=== PATIENT | female | born 1930 | race Caucasian/White ===

== ENCOUNTER 2018-09-25 09:18 | Emergency (ER) | payer MEDICARE ==
--- NOTE | 2018-09-25 10:05 | ER Report ---
History and Physical Time Seen By MD: 09:24 Hx. of Stated Complaint: PATIENT REPORTS FALLING ON THE LEFT RIBS AND HIP. REPORTS NO LOC, NO NECK PAIN. PATIENT FELL LAST DECEMEBER AND HAD 3 BROKEN VERTABRAE HPI/ROS CHIEF COMPLAINT: Left rib left hip pain HISTORY OF PRESENT ILLNESS: 87-year-old female comes in with left rib and left hip pain status post fall last night at about 3:00 in the morning. Patient returned from a trip got up and visiting housekeeper the past with her walker tripped over a piece of luggage fell onto her left side no head or neck trauma no loss of consciousness patient's family was with her at at the time of the fall was immediately they're to elevate her back up mild complaint of some left rib discomfort but felt better went to sleep workup this morning is having worsening left rib pain of and the T form to T3 area just under the axillary region and also penicillin left hip and she is able to ambulate with some discomfort but is at her baseline. No neck pain no head pain no loss of consciousness no chest pain otherwise no shortness of breath no additional complaints noted was a mechanical fall REVIEW OF SYSTEMS: Respiratory: No cough, no dyspnea. Cardiovascular: No chest pain, no palpitations. Gastrointestinal: No vomiting, no abdominal pain. Musculoskeletal: Left rib left hip pain Remainder of the 14 system rev: Yes Allergies: Coded Allergies: No Known Drug Allergies (Unverified , 07/15/18) Home Meds Reported Medications Spironolactone (SPIRONOLACTONE) 25 Mg Tablet, 12.5 MG PO, TAB 07/15/18 Rivaroxaban 15 Mg (XARELTO 15 MG) 15 Mg Tablet, 15 MG PO DAILY, TAB 07/15/18 Potassium Chloride (POTASSIUM CHLORIDE) 10 Meq Capsule.er, 10 MEQ PO 07/15/18 Metoprolol Succinate (METOPROLOL SUCCINATE) 25 Mg Tab.er.24h, 1 TAB PO QDAY, TAB 07/15/18 Melatonin (MELATONIN) 3 Mg Tablet, 3 MG PO 07/15/18 Magnesium Hydroxide (MILK OF MAGNESIA) 400 Mg/5 Ml Oral.susp, 400 MG PO, BOTTLE 07/15/18 Magnesium Oxide (MAGNESIUM OXIDE) 400 Mg Tablet, 400 MG PO TID 07/15/18 Levothyroxine Sodium (LEVOTHYROXINE SODIUM) 75 Mcg Tablet, 75 MCG PO QDAY, TAB 07/15/18 Furosemide (FUROSEMIDE) 40 Mg Tablet, 1 TAB PO BID, TAB 07/15/18 Folic Acid (FOLIC ACID) 1 Mg Tablet, 1 MG PO QDAY, TAB 07/15/18 Flecainide Acetate (FLECAINIDE ACETATE) 50 Mg Tablet, 75 MG PO BID 07/15/18 Diphenhydramine Hcl (BENADRYL ALLERGY) 25 Mg Tablet, 25 MG PO Q6-8H, TAB 07/15/18 Digoxin (DIGOXIN) 125 Mcg Tablet, 125 MCG PO DAILY 07/15/18 Diclofenac Sodium 1% Gel (VOLTAREN 1% GEL) 100 Gm Gel..gram., 2 GM 07/15/18 Cyanocobalamin (Vitamin B-12) (B-12 Compliance) 1,000 Mcg/Ml Kit, 1000 MCG IM monthly 07/15/18 Cholecalciferol (Vitamin D3) (VITAMIN D) 1,000 Unit Capsule, 1000 UNIT PO, CAPSULE 07/15/18 Atorvastatin Calcium (LIPITOR) 10 Mg Tablet, 1 TAB PO QDAY, TAB 07/15/18 Aspirin (ASPIRIN) 81 Mg Tab.chew, 81 MG PO QDAY, TAB.CHEW 07/15/18 Reviewed Nurses Notes: Yes Old Medical Records Reviewed: Yes Constitutional Vital Sign - Last 24 Hours 09/25/18 09/25/18 09/25/18 09/25/18 09:26 09:27 09:38 10:18 Temp 98.2 Pulse 81 82 79 Resp 16 B/P (MAP) 117/76 117/76 (90) Pulse Ox 90 96 99 O2 Delivery Nasal Cannula 09/25/18 10:38 Pulse 71 Pulse Ox 100 Physical Exam General Appearance: [The patient is alert, has no immediate need for airway protection and no current signs of toxicity.] [ ] Eyes: Pupils equal and round no injection. Respiratory: Chest is non tender, lungs are clear to auscultation. Cardiac: regular rate and rhythm [ ] Gastrointestinal: Abdomen is soft and non tender, no masses, bowel sounds normal. Musculoskeletal: Palpation the left anterior lateral chest wall approximately T4 levels with some mild discomfort normal breath sounds bilaterally and tende rness to palpation of the left axial areas well pain has patient has no pain with range of motion of the left hip some mild tenderness to palpation otherwise acetabular area otherwise unremarkable neurovascularly intact Neck is supple and non tender. Extremities have full range of motion and are non tender. Skin: No rashes or lesions. [ ] DIFFERENTIAL DIAGNOSIS: After history and physical exam differential diagnosis was considered for rib fracture and fracture pelvis fracture Medical Decision Making ED Course/Re-evaluation ED Course ED clinical course 79-year-old female mechanical falls a single isolated left sided 6 rib nondisplaced fracture respiratory x-rays were negative diagnosis accordingly we'll discharge her primary care follow-up Decision to Disposition Date: Sep 25, 2018 Decision to Disposition Time: 11:03 Depart Departure Latest Vital Signs Vital Signs Date Time Temp Pulse Resp B/P (MAP) Pulse Ox O2 Delivery O2 Flow Rate FiO2 09/25/18 10:38 71 100 09/25/18 09:27 117/76 (90) 09/25/18 09:26 98.2 16 Nasal Cannula Impression: Primary Impression: Left rib fracture Condition: Improved Disposition: HOME OR SELF-CARE Referrals: PATSY FOFANA DNP, LEATHER TOOLER-BC 5 Days Patient Instructions: Rib Fracture (DC) FIDEL YAN MD Sep 25, 2018 10:05
--- NOTE | 2018-09-25 10:29 | RADIOLOGY IMAGING REPORT ---
FACILITY: [facility] - [place] PATIENT NAME: Loreto Garcia : 1930 MR: [id number] V: [id number] EXAM DATE: ORDERING PHYSICIAN: FIDEL YAN TECHNOLOGIST: Location[place] [facility] [place] Patient: Loreto Garcia : 1930 Visit/Account:[id number] Date of Sevice: 09/25/2018 Exam type: HIP LEFT History: fall Comparison: AP pelvis July 15, 2018. Findings: Chronic appearing fracture through the left-sided the pubis again seen. There is no evidence of acut e fracture dislocation involving the left hip. Surgical clips are identified left side the pelvis IMPRESSION: 1. Old appearing fracture through the left-sided pubis. No evidence of acute fracture or dislocation Report Dictated By: Brook Bonilla MD at 09/25/2018 10:21 AM Report E-Signed By: Brook Bonilla MD at 09/25/2018 10:23 AM WSN:[email or web address]
--- NOTE | 2018-09-25 10:39 | RADIOLOGY IMAGING REPORT ---
[place] [facility] [place] NAME: Loreto Garcia : 1930 MR: [id number] V: [id number] EXAM DATE: ORDERING PHYSICIAN: FIDEL YAN TECHNOLOGIST: Location: [facility] - [place] Patient: Loreto Garcia : 1930 Visit/Account:[id number] Date of Sevice: 09/25/2018 Exam type: CHEST PA LAT History: fall Comparison: July 15, 2018. Findings: Again notes hyperinflation throughout the lung castillo. There is no evidence of acute-appearing pulmo nary consolidation, pneumothorax or pneumomediastinum. The cardiac silhouette is mildly enlarged how ever unchanged. Two week cardiac pacemaker again noted. There are postsurgical changes from a left mastectomy. Surgical clips also identified in the upper abdomen. There is diffuse osteopenia the vi sualized bones and multiple compression fractures in the thoracic and visualized lumbar spine. These appear relatively stable when compared the prior study IMPRESSION: 1. Hyperinflation of the lung castillo although no evidence of acute pulmonary consolidation Multiple compression fractures in the thoracic and visualized lumbar spine although appears similar t o the prior study Report Dictated By: Brook Bonilla MD at 09/25/2018 10:23 AM Report E-Signed By: Brook Bonilla MD at 09/25/2018 10:35 AM WSN:[email or web address]
--- NOTE | 2018-09-25 10:45 | RADIOLOGY IMAGING REPORT ---
[place] [facility] [place] Loreto Garcia : 1930 MR: [id number] V: [id number] EXAM DATE: ORDERING PHYSICIAN: FIDEL YAN TECHNOLOGIST: Location: [facility] - [place] Patient: Loreto Garcia : 1930 Visit/Account:[id number] Date of Sevice: 09/25/2018 Exam type: RIBS LEFT History: fall Comparison: July 15, 2018. Findings: There is mild cortical irregularity along the anterior aspect of the left ninth and 10th ribs althoug h these appear to be old there is irregularity along the anterior aspect of the left sixth rib which may represent an acute nondisplaced fracture. There is no evidence of pneumothorax. IMPRESSION: 1. Cortical irregularity along the anterior aspect of the left sixth rib which may represent a nondi splaced acute fracture. Old appearing fractures through the anterior aspect the left ninth and 10th ribs Report Dictated By: Brook Bonilla MD at 09/25/2018 10:35 AM Report E-Signed By: Brook Bonilla MD at 09/25/2018 10:40 AM WSN:[email or web address]
[2018-09-25 11:06] VITALS: BP 119/71
== END 2018-09-25 11:20 | disposition home or self-care (01) ==
LOC: ER 09:44
DX: S22.32XA Fracture of one rib, left side, initial encounter for closed fracture (principal)
CPT/HCPCS: 71046; 71100; 93005; 99284

== ENCOUNTER 2018-09-25 20:30 | Observation (INO) | payer MEDICARE ==
[~2018-09-25] VITALS: Ht 175.3 cm; Wt 58.1 kg
--- NOTE | 2018-09-25 20:33 | ER Report ---
History and Physical Time Seen By MD: 20:33 HPI/ROS CHIEF COMPLAINT: Syncope while sitting HISTORY OF PRESENT ILLNESS: 87-year-old female brought in by her son with concerns over syncopal episode. Patient was seen here earlier in the ER today after a ground-level fall at 3 AM last night. She's complaining of left-sided rib pain. She has an isolated 6th rib fracture. She takes a role toe chronically. She did not strike her head last night. She's not complaining of a headache. She notes no chest pain, nausea or vomiting. She notes no shortness of breath. She denies abdominal pain, vomiting or diarrhea. Patient has a history of a burst fracture of T12 and wears a brace on her body. REVIEW OF SYSTEMS: Respiratory: No cough, no dyspnea. Cardiovascular: No chest pain, no palpitations. Gastrointestinal: No vomiting, no abdominal pain. Musculoskeletal: No back pain. Allergies: Coded Allergies: No Known Drug Allergies (Unverified , 09/25/18) Home Meds Reported Medications Spironolactone (SPIRONOLACTONE) 25 Mg Tablet, 12.5 MG PO, TAB 07/15/18 Rivaroxaban 15 Mg (XARELTO 15 MG) 15 Mg Tablet, 15 MG PO HS, TAB 07/15/18 Potassium Chloride (POTASSIUM CHLORIDE) 10 Meq Capsule.er, 10 MEQ PO 07/15/18 Metoprolol Succinate (METOPROLOL SUCCINATE) 25 Mg Tab.er.24h, 1 TAB PO QDAY, TAB 07/15/18 Melatonin (MELATONIN) 3 Mg Tablet, 3 MG PO 07/15/18 Magnesium Hydroxide (MILK OF MAGNESIA) 400 Mg/5 Ml Oral.susp, 400 MG PO, BOTTLE 07/15/18 Magnesium Oxide (MAGNESIUM OXIDE) 400 Mg Tablet, 400 MG PO TID 07/15/18 Levothyroxine Sodium (LEVOTHYROXINE SODIUM) 75 Mcg Tablet, 75 MCG PO QDAY, TAB 07/15/18 Furosemide (FUROSEMIDE) 40 Mg Tablet, 1 TAB PO BID, TAB 07/15/18 Folic Acid (FOLIC ACID) 1 Mg Tablet, 1 MG PO QDAY, TAB 07/15/18 Flecainide Acetate (FLECAINIDE ACETATE) 50 Mg Tablet, 75 MG PO BID 07/15/18 Diphenhydramine Hcl (BENADRYL ALLERGY) 25 Mg Tablet, 25 MG PO Q6-8H, TAB 07/15/18 Digoxin (DIGOXIN) 125 Mcg Tablet, 125 MCG PO HS 07/15/18 Diclofenac Sodium 1% Gel (VOLTAREN 1% GEL) 100 Gm Gel..gram., 2 GM 07/15/18 Cyanocobalamin (Vitamin B-12) (B-12 Compliance) 1,000 Mcg/Ml Kit, 1000 MCG IM monthly 07/15/18 Cholecalciferol (Vitamin D3) (VITAMIN D) 1,000 Unit Capsule, 1000 UNIT PO, CAPSULE 07/15/18 Atorvastatin Calcium (LIPITOR) 10 Mg Tablet, 1 TAB PO QDAY, TAB 07/15/18 Aspirin (ASPIRIN) 81 Mg Tab.chew, 81 MG PO QDAY, TAB.CHEW 07/15/18 Past Medical/Surgical History Past medical history: CVA 2009 on blood thinners, pacemaker, MS 2003 on daily aspirin, coronary stent 2004, hypoxia, O2 2 L at night, breast cancer status post left mastectomy, right-sided hip fracture 2. Depression, skin cancer. Past surgical history cataract removal, tonsillectomy, cardiac stent, left mastectomy, skin cancer removal Reviewed Nurses Notes: Yes Old Medical Records Reviewed: Yes Constitutional Vital Sign - Last 24 Hours 09/25/18 09/25/18 09/25/18 09/25/18 20:35 20:37 20:45 20:50 Temp 97.6 Pulse 70 70 70 Resp 14 B/P (MAP) 111/63 111/63 (79) 108/61 (77) Pulse Ox 94 94 94 O2 Delivery Room Air 09/25/18 09/25/18 09/25/18 09/25/18 20:56 21:15 21:20 21:30 Pulse 70 B/P (MAP) 110/64 (79) 116/70 (85) Pulse Ox 96 O2 Flow Rate 2.0 09/25/18 09/25/18 09/25/18 09/25/18 22:02 22:07 22:22 22:27 Pulse 69 70 72 B/P (MAP) 115/66 (82) Pulse Ox 98 100 99 09/25/18 09/25/18 09/25/18 09/25/18 22:57 23:12 23:27 23:32 Pulse 73 86 87 Pulse Ox 94 100 93 96 Physical Exam Vital signs stable, afebrile, pulse ox normal General Appearance: The patient is alert, has no immediate need for airway protection and no current signs of toxicity. Alert and oriented 3, good spirits, mentating well HEENT: Pupils equal and round no injection. TMs normal, oropharynx with dry mucous membranes Respiratory: Chest is non tender, lungs are clear to auscultation. Positive chest wall tenderness on the left side consistent with a rib fracture Cardiac: regular rate and rhythm, no murmur Gastrointestinal: Abdomen is soft and non tender, no masses, bowel sounds normal. Musculoskeletal: Neck: Neck is supple and non tender. No tenderness in the midline Extremities have full range of motion and are non tender. No edema Skin: No rashes or lesions. Neuro: Alert and oriented 3, cranial nerves II through XII intact motor 5/5 tandem mill sticker, sensory intact to light touch 4 DIFFERENTIAL DIAGNOSIS: After history and physical exam differential diagnosis was considered for syncope including but not limited to vasovagal syncope, arrhythmia, dehydration, and blood loss. Medical Decision Making Data Points Result Diagram: 09/27/1836 09/27/1836 Laboratory Hematology Test 09/25/18 20:50 09/25/18 22:00 Peripheral Blood Smear No Y/N Lactate 1.8 mmol/L (0.7-2.1) Digoxin Level 1.8 ng/ml Digoxin Last Dose Date unk Digoxin Last Dose Time unk Urine Color Yellow Urine Clarity Clear Urine pH 6.0 pH (4.8-9.5) Urine Specific [place] 1.012 Urine Protein Negative mg/dL (NEGATIVE) Urine Glucose (UA) Negative mg/dL (NEGATIVE) Urine Ketones Negative mg/dL (NEGATIVE) Urine Blood Negative (NEGATIVE) Urine Nitrite Negative (NEGATIVE) Urine Bilirubin Negative (NEGATIVE) Urine Urobilinogen Negative mg/dL (0.2-1.9) Urine Leukocyte Esterase Negative (NEGATIVE) Urine RBC 1 /HPF (0-2/HPF) Urine WBC <1 /HPF (0-5/HPF) Urine Squamous Epithelial Cells None /LPF (NONE-FEW) Urine Bacteria Negative /HPF (NONE-FEW) Urine Hyaline Casts Many /LPF (NONE-FEW) Urine Mucus None /HPF (NONE-FEW) Chemistry Test 09/25/18 20:50 09/25/18 22:00 Peripheral Blood Smear No Y/N Lactate 1.8 mmol/L (0.7-2.1) Digoxin Level 1.8 ng/ml Digoxin Last Dose Date unk Digoxin Last Dose Time unk Urine Color Yellow Urine Clarity Clear Urine pH 6.0 pH (4.8-9.5) Urine Specific [place] 1.012 Urine Protein Negative mg/dL (NEGATIVE) Urine Glucose (UA) Negative mg/dL (NEGATIVE) Urine Ketones Negative mg/dL (NEGATIVE) Urine Blood Negative (NEGATIVE) Urine Nitrite Negative (NEGATIVE) Urine Bilirubin Negative (NEGATIVE) Urine Urobilinogen Negative mg/dL (0.2-1.9) Urine Leukocyte Esterase Negative (NEGATIVE) Urine RBC 1 /HPF (0-2/HPF) Urine WBC <1 /HPF (0-5/HPF) Urine Squamous Epithelial Cells None /LPF (NONE-FEW) Urine Bacteria Negative /HPF (NONE-FEW) Urine Hyaline Casts Many /LPF (NONE-FEW) Urine Mucus None /HPF (NONE-FEW) Toxicology Test 09/25/18 20:50 Digoxin Level 1.8 ng/ml Digoxin Last Dose Date unk Digoxin Last Dose Time unk Urinalysis Test 09/25/18 22:00 Urine Color Yellow Urine Clarity Clear Urine pH 6.0 pH (4.8-9.5) Urine Specific [place] 1.012 Urine Protein Negative mg/dL (NEGATIVE) Urine Glucose (UA) Negative mg/dL (NEGATIVE) Urine Ketones Negative mg/dL (NEGATIVE) Urine Blood Negative (NEGATIVE) Urine Nitrite Negative (NEGATIVE) Urine Bilirubin Negative (NEGATIVE) Urine Urobilinogen Negative mg/dL (0.2-1.9) Urine Leukocyte Esterase Negative (NEGATIVE) Urine RBC 1 /HPF (0-2/HPF) Urine WBC <1 /HPF (0-5/HPF) Urine Squamous Epithelial Cells None /LPF (NONE-FEW) Urine Bacteria Negative /HPF (NONE-FEW) Urine Hyaline Casts Many /LPF (NONE-FEW) Urine Mucus None /HPF (NONE-FEW) EKG/Imaging EKG Interpretation 12 lead EK Rhythm: Electronic pacemaker at 70 bpm [place]: normal QRS: normal ST segments: normal, comparison to previous EKG dated 07/15/18, no significant change Imaging Results: CT scan of the head without contrast was obtained. The results of the study are no acute findings. The study was read by the radiologist. I viewed the images myself on the PACS system. ED Course/Re-evaluation Clinical Indication for ER IV: Hydration, IV Access ED Course Patient was admitted to an examination room. H&P was done. The differential diagnoses was considered. Patient with 2 potentially syncopal episodes. She was unresponsive for her son called 911 to have her brought in. She appears mildly dehydrated on diagnostic studies. The remainder of the workup is unremarkable. She does have a history of a pacemaker is on Arnaud denied. Patient's on several diuretics. Case was discussed with the son and patient is somewhat like her admitted. She does appear dehydrated. Case was discussed with Dr. Foss hospitalist on-call. Decision to Disposition Date: Sep 25, 2018 Decision to Disposition Time: 22:20 Depart Departure Latest Vital Signs Vital Signs Date Time Temp Pulse Resp B/P (MAP) Pulse Ox O2 Delivery O2 Flow Rate FiO2 09/25/18 23:32 96 09/25/18 23:27 87 09/25/18 22:02 115/66 (82) 09/25/18 20:56 2.0 09/25/18 20:35 97.6 14 Room Air Impression: Primary Impression: Syncope Additional Impressions: Dehydration Falling Left rib fracture Pacemaker Condition: Improved Disposition: Admitted from ER Problem Qualifiers Primary Impression: Syncope Syncope type: unspecified Qualified Codes: R55 - Syncope and collapse Additional Impressions: Left rib fracture Encounter type: initial encounter Rib fracture type: single rib Fracture type: closed Qualified Codes: S22.32XA - Fracture of one rib, left side, initial encounter for closed fracture PRIYA SARKAR DO Sep 25, 2018 20:33
[2018-09-25] MEDS ORDERED: NS(*) 0.9% 1000 ML BAG 1,000 ML IV ONE (20:38)
--- NOTE | 2018-09-25 20:54 | EKG ---
[place] [facility] [place]: KARLA EM : [id number] MR: [id number] V: [id number] EXAM DATE: ORDERING PHYSICIAN: PRIYA SARKAR TECHNOLOGIST: LANEY Frank Reason : SYNCOPE Blood Pressure : / mmHG Vent. Rate : 070 BPM Atrial Rate : 073 BPM P-R Int : 000 ms QRS Dur : 180 ms QT Int : 474 ms P-R-T Axes : 000 -77 104 degrees QTc Int : 511 ms Electronic ventricular pacemaker When compared with ECG of 15-JUL-2018 08:04, No significant change was found Confirmed by JOAQUIN TRAVIS ([id number]) on 09/25/2018 10:30:17 PM Referred By: Confirmed By:JOAQUIN TRAVIS
[2018-09-25 21:09] LABS: PLATELET COUNT, AUTOMATED 269 K/uL (150-450)
--- NOTE | 2018-09-25 21:28 | RADIOLOGY IMAGING REPORT ---
FACILITY: [facility] - [place] PATIENT NAME: Loreto Garcia : 1930 MR: [id number] V: [id number] EXAM DATE: ORDERING PHYSICIAN: PRIYA SARKAR TECHNOLOGIST: Location: [facility] Patient: Loreto Garcia : 1930 Visit/Account:[id number] Date of Sevice: 09/25/2018 EXAMINATION: CT HEAD WITHOUT CONTRAST COMPARISON: 07/15/2018 HISTORY: Episodes of fainting. Possibly hit head. On blood thinners. PROCEDURE: Noncontrast CT from the vertex through the skull base. One of the following dose optimizat ion techniques was utilized in the performance of this exam: Automated exposure control; adjustment o f the mA and/or kV according to the patient's size; or use of an iterative reconstruction technique. Specific details can be referenced in the facility's radiology CT exam operational policy. FINDINGS: Brain volume: Mild to moderate global atrophy as before. Hemorrhage/extra-axial fluid: None. Mass effect/midline shift/edema: None. Ischemia: Small region of encephalomalacia in the right frontal lobe is unchanged. Moderate chronic white matter changes before. No new region of ring-white differentiation loss. Ventricles and basal cisterns: Within normal limits. Posterior fossa: Negative. Vessels: Atherosclerosis. Calvarium, skull base, and scalp: Negative. Visualized sinuses and orbits: Within normal limits. IMPRESSION: 1. No intracranial hemorrhage or mass effect. 2. Atrophy, right frontal encephalomalacia, and chronic white matter disease. No CT findings of acu te ischemia. Report Dictated By: Kali Silva MD at 09/25/2018 9:18 PM Report E-Signed By: Kali Silva MD at 09/25/2018 9:23 PM WSN:[email or web address]
[2018-09-25] MEDS ORDERED: INFLUENZA VIRUS VAC 0.5ML SYR IM ONLY ONE (23:20)
[2018-09-25] MEDS ORDERED: FLECAINIDE ACETATE 75 MG PO SCH (23:25)
[2018-09-25] MEDS ORDERED: RIVAROXABAN 10 MG TAB PO SCH (23:25)
[2018-09-25] MEDS ORDERED: traMADol 50 MG TAB PO PRN (23:30)
[2018-09-25] MEDS ORDERED: ACETAMINOPHEN 500 MG TAB PO PRN (23:30)
[2018-09-25 23:50] VITALS: BP 120/74
--- NOTE | 2018-09-25 23:52 | History & Physical ---
History of Present Illness History of Present Illness 87yo female with a h/o a pacemaker placement, CHF and atrial fibrillation who was brought to the ER for episodes of passing out. She came to [place] yesterday from [facility] on a "red eye" flight. She did fairly well on the flight, but didn't sleep. At about 0300 this morning, she returned from going to the bathroom and missed the bed and fell to the floor. She denies any palpitations or syncope. She went to the ER at about 0930. She was found to have a left 6th rib fracture. She went back to her son's home and took a nap. She got up and did fairly well until later in the afternoon. She got in the car with her son to go to a basketball game and he noticed that she suddenly was slumped to the side. He had difficulty waking her up and first, but then she came to and was back to baseline. It only lasted about a minute. After the game, she went upstairs and sat in a chair. The [id number] made sure her oxygen was set up and then went downstairs for a minute. When she came back, the patient was slumped in the chair. It took longer for her to wake up, so they called EMS. By the time, EMS arrived the patient was back to baseline and was able to ambulate. However, she did have nausea after the last event, which has resolved. She denies cp/sob/f/c/dysuria/new cough. She hasn't missed any medications and hasn't been put on any new medications. In the ER, she received a liter of fluid. History Problems: (1) Atrial fibrillation Status: Chronic (2) CHF (congestive heart failure) Status: Chronic (3) Hypothyroid Status: Chronic (4) Hyperlipemia Status: Chronic (5) Pacemaker Status: Chronic (6) Left rib fracture Status: Chronic (7) T12 burst fracture Status: Chronic (8) L1 vertebral fracture Status: Chronic Home Meds Reported Medications Spironolactone (SPIRONOLACTONE) 25 Mg Tablet, 12.5 MG PO, TAB 07/15/18 Rivaroxaban 15 Mg (XARELTO 15 MG) 15 Mg Tablet, 15 MG PO HS, TAB 07/15/18 Potassium Chloride (POTASSIUM CHLORIDE) 10 Meq Capsule.er, 10 MEQ PO 07/15/18 Metoprolol Succinate (METOPROLOL SUCCINATE) 25 Mg Tab.er.24h, 1 TAB PO QDAY, TAB 07/15/18 Melatonin (MELATONIN) 3 Mg Tablet, 3 MG PO 07/15/18 Magnesium Hydroxide (MILK OF MAGNESIA) 400 Mg/5 Ml Oral.susp, 400 MG PO, BOTTLE 07/15/18 Magnesium Oxide (MAGNESIUM OXIDE) 400 Mg Tablet, 400 MG PO TID 07/15/18 Levothyroxine Sodium (LEVOTHYROXINE SODIUM) 75 Mcg Tablet, 75 MCG PO QDAY, TAB 07/15/18 Furosemide (FUROSEMIDE) 40 Mg Tablet, 1 TAB PO BID, TAB 07/15/18 Folic Acid (FOLIC ACID) 1 Mg Tablet, 1 MG PO QDAY, TAB 07/15/18 Flecainide Acetate (FLECAINIDE ACETATE) 50 Mg Tablet, 75 MG PO BID 07/15/18 Diphenhydramine Hcl (BENADRYL ALLERGY) 25 Mg Tablet, 25 MG PO Q6-8H, TAB 07/15/18 Digoxin (DIGOXIN) 125 Mcg Tablet, 125 MCG PO HS 07/15/18 Diclofenac Sodium 1% Gel (VOLTAREN 1% GEL) 100 Gm Gel..gram., 2 GM 07/15/18 Cyanocobalamin (Vitamin B-12) (B-12 Compliance) 1,000 Mcg/Ml Kit, 1000 MCG IM monthly 07/15/18 Cholecalciferol (Vitamin D3) (VITAMIN D) 1,000 Unit Capsule, 1000 UNIT PO, CAPSULE 07/15/18 Atorvastatin Calcium (LIPITOR) 10 Mg Tablet, 1 TAB PO QDAY, TAB 07/15/18 Aspirin (ASPIRIN) 81 Mg Tab.chew, 81 MG PO QDAY, TAB.CHEW 07/15/18 Allergies: Coded Allergies: No Known Drug Allergies (Unverified , 09/25/18) Other Social/Family Hx Remote smoking hx for 10yrs and a small amount daily. She has about 1 drink a night. She lives in [place], [place]. Review of Systems All Systems Reviewed/Normal: Yes, Except as Noted Exam Vital Signs Vital Signs Date Time Temp Pulse Resp B/P (MAP) Pulse Ox O2 Delivery O2 Flow Rate FiO2 09/25/18 22:22 70 100 09/25/18 22:02 115/66 (82) 09/25/18 20:56 2.0 09/25/18 20:35 97.6 14 Room Air General Appearance: Alert, Awake, No Acute Distress Neuro: No Gross deficits (Answers questions appropriately, but a bit slow sometimes) ENT: Moist Mucous Membranes Cardiovascular: Regular Rate and Rhythm Respiratory: Clear to Auscultation GI: Abd Soft and Non-Tender Extremities: No Edema Integumentary: No Jaundice, No Cyanosis Medical Decision Making Data Points Result Diagram: 09/25/18204909/25/182049 Item Value Date Time Neutrophils (%) (Auto) 77.8 % H 09/25/182049 Lymphocytes (%) (Auto) 12.2 % L 09/25/182049 Monocytes (%) (Auto) 9.3 % 09/25/182049 Eosinophils (%) (Auto) 0.3 % L 09/25/182049 Lactate 1.8 mmol/L 09/25/182049 Troponin I 0.016 ng/ml 09/25/182049 Total Bilirubin 0.4 mg/dl 09/25/182049 Aspartate Amino Transf (AST/SGOT) 31 U/L 09/25/182049 Alanine Aminotransferase (ALT/SGPT) 38 U/L 09/25/182049 Alkaline Phosphatase 74 U/L 09/25/182049 Creatinine 1.20 mg/dl H 07/15/18 0809 Blood Urea Nitrogen 22 mg/dl H 07/15/18 08 Digoxin Level 1.8 ng/ml 09/25/182049 Urine RBC 1 /HPF 09/25/182199 Urine WBC <1 /HPF 09/25/182199 Urine Squamous Epithelial Cells None /LPF 09/25/182199 Urine Bacteria Negative /HPF 09/25/182199 Urine Hyaline Casts Many /LPF H 09/25/182199 EKG / Imaging Imaging Head CT - 1. No intracranial hemorrhage or mass effect. 2. Atrophy, right frontal encephalomalacia, and chronic white matter disease. No CT findings of acute ischemia. CXR - 1. Hyperinflation of the lung castillo although no evidence of acute pulmonary consolidation Multiple compression fractures in the thoracic and visualized lumbar spine although appears similar to the prior study Rib Xray - 1. Old appearing fracture through the left-sided pubis. No evidence of acute fracture or dislocation Assessment and Plan Problems: (1) Syncope Status: Acute Assessment & Plan: She presented with 2-3 episodes of unresponsiveness lasting 1-2 minutes. There was no focal weakness, shaking, or incontinence with the episode. She had full recovery immediately afterwards. The events happened while sitting. She returned from [facility] yesterday morning after taking a "red eye". Her BUN/Cr are mildly elevated from baseline, but no signs of infection. She has a pacemaker and reported h/o atrial fibrillation. Digoxin level was wnl. She has been given a liter of fluid. Will watch on telemetry and recheck BMP tomorrow. (2) CHF (congestive heart failure) Status: Chronic Assessment & Plan: She has no signs or symptoms of exacerbation. She doesn't know her EF. Lasix and Spironolactone will be held. (3) Atrial fibrillation Status: Chronic Assessment & Plan: Continue chronic digoxin, Toprol and Xarelto. (4) Left rib fracture Status: Chronic Assessment & Plan: Left 6th rib fracture after a fall at 0300. She likely missed sitting on the bed and landed on the floor, per her son. Tylenol and Tra madol for pain. (5) Pacemaker Status: Chronic Assessment & Plan: She appears to be 100% ventricularly paced. Will watch on telemetry. Venous Thromboembolism Antithrombotics Is Pt On Any Antithrombotics?: Yes Exam Sepsis Risk: No Definite Risk Problem Qualifiers (1) Syncope: Syncope type: unspecified Qualified Codes: R55 - Syncope and collapse (2) Left rib fracture: Encounter type: initial encounter Rib fracture type: single rib Fracture type: closed Qualified Codes: S22.32XA - Fracture of one rib, left side, initial encounter for closed fracture JOAQUIN TRAVIS MD Sep 25, 2018 23:52
[2018-09-26] MEDS: DIGOXIN 0.125 MG TAB PO SCH ×2 (00:36→21:07)
[2018-09-26] MEDS: MELATONIN 3 MG TAB PO SCH ×2 (00:36→21:06)
[2018-09-26] MEDS: ATORVASTATIN 10 MG TAB PO SCH ×2 (00:36→21:06)
[2018-09-26 04:00] VITALS: BP 98/60
[2018-09-26] MEDS: LEVOTHYROXINE SOD 0.075 MG TAB PO SCH (05:38)
[2018-09-26 06:08] LABS: PLATELET COUNT, AUTOMATED 235 K/uL (150-450)
[2018-09-26 07:28] VITALS: BP 105/60
--- NOTE | 2018-09-26 10:01 | Hospitalist Progress Note ---
Subjective Progress Notes Subjective She denies any complaints this AM. No dysrhythmias noted on telemetry thus far. Physical Exam Vital Signs Date Time Temp Pulse Resp B/P (MAP) Pulse Ox O2 Delivery O2 Flow Rate FiO2 09/26/18 07:28 97.6 70 16 105/60 (75) 97 Nasal Cannula 2.0 Intake and Output 09/26/18 07:00 Intake Total 1300 ml Output Total 10 ml Balance 1290 ml Intake Oral 300 ml IV Total 1000 ml Output Urine Total 10 ml # Voids 1 General Appearance: Alert, Awake Cardiovascular: Regular Rate and Rhythm Respiratory: Clear to Auscultation Chest: Other (pacemaker left upper chest) GI: Soft and Non-Tender Extremities: Warm, Perfused Result Diagram: 09/26/1852309/26/18523 Assessment and Plan Problems: (1) Syncope Status: Acute Assessment & Plan: She presented with 2 or 3 episodes of unresponsiveness lasting ~1 minute. There was no focal weakness, shaking, or incontinence with the episode. She had full recovery immediately afterwards. The events happened while sitting and usually after low level of activity (walking). She returned from [facility] early Sunday after taking a "red eye" and fell sustaining a left 6th rib fracture early Sunday. Her BUN/Cr were mildly elevated from baseline. No obvious signs of infection. She has a pacemaker and reported history of atrial fibrillation. Digoxin level was in therapeutic range. She has been given a liter of fluid and reports feeling improved. No abnormalities on telemetry thus far and she is essentially pacemaker dependent. Will see if cardiology might be able to interrogate her pacemaker. (2) CHF (congestive heart failure) Status: Chronic Assessment & Plan: She has no signs or symptoms of an acute exacerbation. She (and family) do not know her level of cardiac function. Lasix and Spironolactone will be held for now as she does appear modestly dehydrated. (3) Atrial fibrillation Status: Chronic Assessment & Plan: Continue her usual digoxin, Toprol and Xarelto. (4) Left rib fracture Status: Chronic Assessment & Plan: Left 6th rib fracture after a fall at 0300hrs yesterday (Sunday09/25/18). She likely missed sitting on the bed and landed on the floor, per her son. Tylenol and Tramadol for pain. (5) Pacemaker Status: Chronic Assessment & Plan: She appears to be 100% ventricularly paced. Will see if can have her pacer interrogated. Will continue to watch on telemetry. (6) Dehydration Status: Acute Assessment & Plan: She appeared to be modestly dehydrated most likely due to diuretics. She has lab evidence of acute on chronic renal failure. Improved with gentle IV fluids. Exam Sepsis Risk: No Definite Risk Problem Qualifiers (1) Syncope: Syncope type: unspecified Qualified Codes: R55 - Syncope and collapse (2) Left rib fracture: Encounter type: initial encounter Rib fracture type: single rib Fracture type: closed Qualified Codes: S22.32XA - Fracture of one rib, left side, i nitial encounter for closed fracture GABRIEL COTTO MD Sep 26, 2018 10:01
[2018-09-26 10:04] VITALS: BP 93/56
[2018-09-26] MEDS: METOPROLOL SUCC XL 25 MG TABCR PO SCH (10:07)
[2018-09-26] MEDS: MAGNESIUM OXIDE 400 MG TAB PO SCH ×2 (10:08→21:06)
[2018-09-26] MEDS: FLECAINIDE ACETATE 50 MG TABLET PO SCH ×2 (10:11→21:08)
[2018-09-26 11:26] VITALS: BP 104/67
[2018-09-26 13:07] VITALS: Ht 175.3 cm; Wt 58.1 kg
[2018-09-26 15:05] VITALS: BP 104/59
[2018-09-26 19:50] VITALS: BP 116/63
[2018-09-26] MEDS ORDERED: RIVAROXABAN 15 MG TABLET PO SCH (21:00)
[2018-09-27 03:08] VITALS: BP 98/54
[2018-09-27 05:49] LABS: PLATELET COUNT, AUTOMATED 216 K/uL (150-450)
[2018-09-27] MEDS: LEVOTHYROXINE SOD 0.075 MG TAB PO SCH (06:14)
[2018-09-27 06:20] VITALS: BP 108/55
[2018-09-27] MEDS ORDERED: SALINE 0.65% NAS SPR 44 ML BTL PRN (08:20)
--- NOTE | 2018-09-27 09:42 | Hospitalist Depart ---
Discharge Summary Reason for Hosp/Final Diag: (1) Syncope Status: Acute Hospital Course & Plan: She presented with 2 or 3 episodes of unresponsiveness lasting ~1 minute. There was no focal weakness, shaking, or incontinence with the episode. She had full recovery immediately afterwards. The events happened while sitting and usually after low level of activity (walking). She returned from [facility] early Sunday after taking a "red eye" and fell sustaining a left 6th rib fracture early Sunday. Her BUN/Cr were mildly elevated from baseline. No obvious signs of infection. She has a pacemaker and reported history of atrial fibrillation. Digoxin level was in therapeutic range. She has been given a liter of fluid and reports feeling improved. No abnormalities on telemetry thus far and she is essentially pacemaker dependent. Pacemaker was interrogated at [facility], showed some atrial tachycardia's with rates in the 110s, but no worrisome findings. She will follow up with her cardiologists when she returns home. (2) CHF (congestive heart failure) Status: Chronic Hospital Course & Plan: She has no signs or symptoms of an acute exacerbation. She (and family) do not know her level of cardiac function. Lasix and Spironolactone will be held for now as she does appear modestly dehydrated. This will be resumed at home, she was encouraged to stay hydrated. She will continue her usual oxygen at home. (3) Atrial fibrillation Status: Chronic Hospital Course & Plan: Continue her usual digoxin, Toprol and Xarelto. (4) Left rib fracture Status: Chronic Hospital Course & Plan: Left 6th rib fracture after a fall at 0300hrs (Sunday09/25/18). She likely missed sitting on the bed and landed on the floor, per her son. Tylenol and Tramadol for pain. (5) Pacemaker Status: Chronic Hospital Course & Plan: She appears to be 100% ventricularly paced. She was monitored on telemetry without any findings. (6) Dehydration Status: Acute Hospital Course & Plan: She appeared to be modestly dehydrated most likely due to diuretics. She has lab evidence of acute on chronic renal failure. Improved with gentle IV fluids. Departure Latest Vital Signs Vital Signs 09/27/18 06:20 Temp 98.0 Pulse 70 Resp 16 B/P (MAP) 108/55 (72) Pulse Ox 91 O2 Delivery Nasal Cannula O2 Flow Rate 2.0 Weight (Pounds): 128 Result Diagram: 09/27/1853509/27/18535 Condition: Improved Discharge: Home, Self Care Discharge Instructions Home Meds Reported Medications Spironolactone (SPIRONOLACTONE) 25 Mg Tablet, 12.5 MG PO, TAB 07/15/18 Rivaroxaban 15 Mg (XARELTO 15 MG) 15 Mg Tablet, 15 MG PO HS, TAB 07/15/18 Potassium Chloride (POTASSIUM CHLORIDE) 10 Meq Capsule.er, 10 MEQ PO 07/15/18 Metoprolol Succinate (METOPROLOL SUCCINATE) 25 Mg Tab.er.24h, 1 TAB PO QDAY, TAB 07/15/18 Melatonin (MELATONIN) 3 Mg Tablet, 3 MG PO 07/15/18 Magnesium Hydroxide (MILK OF MAGNESIA) 400 Mg/5 Ml Oral.susp, 400 MG PO, BOTTLE 07/15/18 Magnesium Oxide (MAGNESIUM OXIDE) 400 Mg Tablet, 400 MG PO TID 07/15/18 Levothyroxine Sodium (LEVOTHYROXINE SODIUM) 75 Mcg Tablet, 75 MCG PO QDAY, TAB 07/15/18 Furosemide (FUROSEMIDE) 40 Mg Tablet, 1 TAB PO BID, TAB 07/15/18 Folic Acid (FOLIC ACID) 1 Mg Tablet, 1 MG PO QDAY, TAB 07/15/18 Flecainide Acetate (FLECAINIDE ACETATE) 50 Mg Tablet, 75 MG PO BID 07/15/18 Diphenhydramine Hcl (BENADRYL ALLERGY) 25 Mg Tablet, 25 MG PO Q6-8H, TAB 07/15/18 Digoxin (DIGOXIN) 125 Mcg Tablet, 125 MCG PO HS 07/15/18 Diclofenac Sodium 1% Gel (VOLTAREN 1% GEL) 100 Gm Gel..gram., 2 GM 07/15/18 Cyanocobalamin (Vitamin B-12) (B-12 Compliance) 1,000 Mcg/Ml Kit, 1000 MCG IM monthly 07/15/18 Cholecalciferol (Vitamin D3) (VITAMIN D) 1,000 Unit Capsule, 1000 UNIT PO, CA PSULE 07/15/18 Atorvastatin Calcium (LIPITOR) 10 Mg Tablet, 1 TAB PO QDAY, TAB 07/15/18 Aspirin (ASPIRIN) 81 Mg Tab.chew, 81 MG PO QDAY, TAB.CHEW 07/15/18 Diet: Regular Activity: As Tolerated Special Instructions: Follow up with gas plumbing inspector when you arrive home. Increase hydration with diuretic use. Use Tylenol for pain. Venous Thromboembolism Antithrombotics Is Pt On Any Antithrombotics?: Yes Problem Qualifiers (1) Syncope: Syncope type: unspecified Qualified Codes: R55 - Syncope and collapse (2) Left rib fracture: Encounter type: initial encounter Rib fracture type: single rib Fracture type: closed Qualified Codes: S22.32XA - Fracture of one rib, left side, initial encounter for closed fracture ROHIT DAVIS Sep 27, 2018 09:42
[2018-09-27] MEDS: MAGNESIUM OXIDE 400 MG TAB PO SCH (10:06)
[2018-09-27] MEDS: METOPROLOL SUCC XL 25 MG TABCR PO SCH (10:09)
[2018-09-27] MEDS: FLECAINIDE ACETATE 50 MG TABLET PO SCH (10:09)
[2018-09-27 10:11] VITALS: BP 104/65
== END 2018-09-27 09:37 | disposition home or self-care (01) ==
LOC: ER 20:45 → MED 23:34
PROVIDERS: ADMIT Internal Medicine; ATTEND Internal Medicine
DX: S22.32XA Fracture of one rib, left side, initial encounter for closed fracture (principal); E86.0 Dehydration; Z95.0 Presence of cardiac pacemaker; I50.9 Heart failure, unspecified; I48.2 Chronic atrial fibrillation; Z79.01 Long term (current) use of anticoagulants
CPT/HCPCS: 36415; 70450; 80162; 81001; 83605; 83735; 84484; 85025; 85379; 96360; 99284; A4353; A9270; G0378; J7030; 82040; 82247; 82310; 82374; 82435; 82565; 82947; 84075; 84132; 84155; 84295; 84450; 84460; 84520

== ENCOUNTER → 2018-09-25 | Outpatient (CLI) | payer MEDICARE ==
[~2018-09-25] MED LIST: ASPI81TA94 PO; ATOR10TA24 PO; CHOL100058 PO; CYAN100021 IM; DICL100G39; DIGO125T73 PO; DIPH-741 PO; FLEC50TA16 PO; FOLI-68 PO; FURO-47 PO; LEVO75TA73 PO; MAGN400T36 PO; MELA3TAB31 PO; METO25TA23 PO; MOM PO; POTA10CA40 PO; RIVA15TA PO; SPIR25TA80 PO
[2018-09-26 13:07] VITALS: BMI 18.9
== END ==
LOC: AMB 19:42
PROVIDERS: ATTEND Nurse Practitioner
DX: R55 Syncope and collapse (principal); R53.1 Weakness; R09.02 Hypoxemia
CPT/HCPCS: A0998